=== PATIENT | female | born 1995 | race Caucasian/White ===

== ENCOUNTER 2017-04-30 16:31 | Observation (INO) | payer OTHER ==
[2017-04-30] MEDS ORDERED: Ketorolac INJ* 30 MG/ML 1 ML VIAL IV PUSH ONE (17:59)
[2017-04-30] MEDS ORDERED: Ondansetron INJ* 2 MG/ML VIAL IV ONE (17:59)
--- NOTE | 2017-04-30 18:05 | ED ---
Abdominal Pain/Female - HPI Summary HPI Summary: 21F presents with abdominal pain since this morning. It started in her lower abdomen and now radiates across her entire abdomen. She admits to nausea but denies any vomiting. She denies any diarrhea, constipation, dysuria, hematuria , flank pain, urgency, or frequency. She states initially the pain felt like period cramps but she is not due for her period. She denies any abnormal vaginal discharge. She has never had this pain before. She states her appetite has been normal. She denies any previous abdominal surgeries. She tried some aleve without relief. The pain has been getting worst throughout the day. She denies any one else being sick or eating anything different. She had a low grade fever today. - History of Current Complaint Chief Complaint: EDScotin Stated Complaint: ABD PAIN Time Seen by Provider: 04/30/17 17:48 Pain Intensity: 4 Allergies/Adverse Reactions: Allergies Allergy/AdvReac Type Severity Reaction Status Date / Time Penicillins [PCN] Allergy Swelling Verified 04/30/17 18:03 Of Face,Lips,& Throat PMH/Surg Hx/FS Hx/Imm Hx Endocrine/Hematology History: Denies: Hx Anticoagulant Therapy Cardiovascular History: Denies: Hx Hypertension Infectious Disease History: Denies: Traveled Outside the [place] in Last 30 Days - Family History Known Family History: Negative: Cardiac Disease Review of Systems Negative: Fever Negative: Chest Pain Negative: Shortness Of Breath Positive: Abdominal Pain, Nausea. Negative: Vomiting, Diarrhea All Other Systems Reviewed And Are Negative: Yes Physical Exam Triage Information Reviewed: Yes Vital Signs On Initial Exam: Initial Vitals Temp Pulse Resp BP Pulse Ox 100.2 F 111 18 120/73 100 04/30/17 16:40 04/30/17 16:40 04/30/17 16:40 04/30/17 16:40 04/30/17 16:40 Vital Signs Reviewed: Yes Appearance: Positive: Well-Appearing Skin: Positive: Warm, Dry Head/Face: Positive: Normal Head/Face Inspection Eyes: Positive: Normal, EOMI, ZACH, Conjunctiva Clear ENT: Positive: Normal ENT inspection, Pharynx normal, TMs normal Respiratory/Lung Sounds: Positive: Clear to Auscultation, Breath Sounds Present Cardiovascular: Positive: Normal, RRR Abdomen Description: Positive: Soft, Other: - tendnerness in RLQ, pos rovsings Bowel Sounds: Positive: Present Pelvic Exam: Positive: external exam normal, speculum exam normal, bimanual exam normal, no cerv. motion tender Diagnostics - Vital Signs Vital Signs Temp Pulse Resp BP Pulse Ox 04/30/17 16:40 100.2 F 111 18 120/73 100 - Laboratory Result Diagrams: 04/30/17 18:12 04/30/17 18:12 Lab Statement: Any lab studies that have been ordered have been reviewed, and results considered in the medical decision making process. - CT abd CT Interpretation: Positive (See Comments) - IMPRESSION: THE CT FINDINGS MAY BE COMPATIBLE WITH EARLY ACUTE APPENDICITIS GIVEN THE APPROPRIATE CLINICAL PRESENTATION. SUGGEST SURGICAL REFERRAL INDICATED. CT Interpretation Completed By: Radiologist - Ultrasound No standard instances Ultrasound Interpretation: No Acute Changes - IMPRESSION: TRACE FREE FLUID LIKELY REPRESENTING PHYSIOLOGIC FREE FLUID Ultrasound Interpretation Completed By: Radiologist Re-Evaluation - Re-Evaluation First Eval Re-Evaluation Time: 20:40 Change: Improved Comment: felling better. pain only on palpation of RLQ Abdominal Pain Fem Course/Dx - Course Course Of Treatment: 21F presents with abdominal pain today. It started in her lower abdomen and now radiates across her entire abdomen. She admits to nausea but denies any vomiting. She denies any diarrhea, constipation, dysuria, hematuria, flank pain, urgency, or frequency. She states initially the pain felt like period cramps but she is not due for her period. She denies any abnormal vaginal discharge. She has never had this pain before. She states her appetite has been normal. She denies any previous abdominal surgeries. She tried some aleve without relief. The pain has been getting worst throughout the day. on exam tender in RLQ without rebound. pos rovsings. wbc of 18.4 and crp of 28. temp of 101. CT shows possible early appendicitis. spoke with dr torres recommended pelvic exam. pelvic exam normal. dr torres will see in ED - Diagnoses Differential Diagnosis: Positive: Appendicitis, Ovarian Cyst, Urinary Tract Infection Provider Diagnoses: Appendicitis - Provider Notifications Discussed Care Of Patient With: dr torres Time Discussed With Above Provider: 20:45 - perform pelvic exam Discharge - Discharge Plan Condition: Stable Disposition: ADMITTED TO [facility]
[2017-04-30 18:25] LABS: Hematocrit 39 % (35-47); Hemoglobin 13.3 g/dl (12.0-16.0); Mean Corpuscular HGB Conc 34 g/dl (31-36); Mean Corpuscular Hemoglobin 29 pg (27-31); Mean Corpuscular Volume 86 fL (80-97); Mean Platelet Volume 9 um3 (7.4-10.4); Red Blood Count 4.51 10^6/ul (4.0-5.4); Red Cell Distribution Width 12 % (10.5-15); White Blood Count 18.4 10^3/ul (3.5-10.8)
[2017-04-30] MEDS: NS 0.9% 1000 ML* 2,000 ML IV ONE (18:29)
[2017-04-30 18:35] LABS: ALT 19 U/L (7-52); AST 18 U/L (13-39); Albumin 4.3 g/dL (3.2-5.2); Alkaline Phosphatase 42 U/L (34-104); Anion Gap 7 mmol/L (2-11); BUN/Creatinine Ratio 15.3 (8-20); Blood Urea Nitrogen 11 mg/dL (6-24); CO2 Carbon Dioxide 24 mmol/L (22-32); Calcium 9.5 mg/dL (8.6-10.3); Chloride 105 mmol/L (101-111); EGFR African American 132.8 (>60); EGFR Non-African American 103.3 (>60); Glucose 93 mg/dL (70-100); Lipase 15 U/L (11.0-82.0); Potassium 3.6 mmol/L (3.5-5.0); Sodium 136 mmol/L (133-145); Total Protein 7.3 g/dL (6.4-8.9)
[2017-04-30] MEDS ORDERED: Iohexol 300* (CONTRAST) 10 ML SDV IV ONE (19:19)
--- NOTE | 2017-04-30 19:28 | RAD ---
INDICATION: Pelvic pain COMPARISON: None TECHNIQUE: Longitudinal and transverse transvaginal scans of the pelvis were obtained. FINDINGS: Uterus: The uterus is normal in size. There are no focal masses. The uterus measures 8.5 x 3.7 x 4.6 cm. Endometrial thickness: The endometrial thickness is measured at 0.4 cm. . Free fluid: There is trace free fluid . Ovaries: The ovaries are normal in size. The right ovary measures 3.4 x 2.7 x 3.5 cm. The left ovary measures 2.7 x 1.7 x 2.4 cm. . Doppler interrogation demonstrates flow to each ovary. Other: None IMPRESSION: TRACE FREE FLUID LIKELY REPRESENTING PHYSIOLOGIC FREE FLUID
--- NOTE | 2017-04-30 20:28 | RAD ---
INDICATION: Right lower quadrant pain COMPARISON: Pelvic sonogram same date TECHNIQUE: Axial source images were obtained from the hemidiaphragms to the symphysis pubis following administration of oral and intravenous contrast. 85 mL Omnipaque 300 was utilized. Coronal and sagittal reconstructed images were acquired. Lung bases: The lung bases are clear. Liver: The liver is normal in size. There are no masses. There is no ductal dilatation. Gallbladder: There are no calcified gallstones. There is no evidence of wall thickening or pericholecystic fluid. Spleen: The spleen is normal in size. There are no masses. Pancreas: There is no focal pancreatic mass or ductal dilatation. Adrenal glands: There is no evidence of adrenal mass. Kidneys: The kidneys are normal in size and position. There are prompt nephrograms and there is prompt excretion bilaterally. There are no renal parenchymal masses. There is no evidence of nephrolithiasis. Adenopathy: There is no evidence of adenopathy by size criteria. Fluid collections: Small amount of free fluid in the cul-de-sac. Small follicles bilaterally. Vessels:There are no significant atherosclerotic changes involving the aorta. There is no focal aneurysm. The iliac vessels are normal in caliber. The IVC appears normal. GI tract: The upper GI tract is unremarkable. There is minor thickening of the cecal tip. There is minimal periappendiceal stranding. The appendix is fluid-filled but not dilated. The findings may be secondary to an early acute appendicitis but must be correlated with the clinical presentation. Pelvic organs: The uterus and adnexa appear normal Bladder: There are no bladder masses. Abdominal and pelvic soft tissues: The extraperitoneal abdominal and pelvic soft tissues appear normal.. Osseous structures: There are no acute osseous findings. Other: None IMPRESSION: THE CT FINDINGS MAY BE COMPATIBLE WITH EARLY ACUTE APPENDICITIS GIVEN THE APPROPRIATE CLINICAL PRESENTATION. SUGGEST SURGICAL REFERRAL INDICATED.
[2017-04-30 20:52] LABS: Urine Bilirubin Negative (Negative); Urine Glucose Negative (Negative); Urine Nitrite Negative (Negative)
[2017-04-30] MEDS ORDERED: Sodium Citrate/Citric Acid* 15 ML UDC ONE (21:58)
[2017-04-30] MEDS ORDERED: Clindamycin 900 MG IVPREMIX(* 900 MG/50 ML SDV IV ONE ×2 (22:00→22:17)
[2017-04-30] MEDS ORDERED: Gentamicin ADULT (*) 300 MG in NS 0.9% 250 ML* 250 ML IVPB ONE (22:00)
[2017-04-30] MEDS ORDERED: Bupivacaine 0.5% W/EPI SDV* 30 ML VIAL ONE (22:15)
[2017-04-30] MEDS ORDERED: fentaNYL* 50 MCG/ML 2 ML VIAL (100 MCG VIAL) ONE (22:19)
[2017-04-30] MEDS ORDERED: Propofol* 10 MG/ML 20 ML BTL IV PUSH ONE (22:37)
[2017-04-30] MEDS ORDERED: Dexamethasone IV* 4 MG/ML 1 ML (4 MG) ONE (22:37)
[2017-04-30] MEDS ORDERED: Lidocaine 2% PF * 5 ML VIAL ONE (22:37)
[2017-04-30] MEDS ORDERED: Scopolamine 1.5 mg* PATCH ONE (22:37)
[2017-04-30] MEDS ORDERED: Succinylcholine* 20 MG/ML 10 ML VIAL ONE (22:37)
[2017-04-30] MEDS ORDERED: fentaNYL* 50 MCG/ML 2 ML VIAL (100 MCG VIAL) IV PRN (22:47)
[2017-04-30] MEDS ORDERED: diPHENhydraMINE IV* 50 MG/ML 1 ml VIAL (BENADRYL) IV PRN (22:47)
[2017-04-30] MEDS ORDERED: oxyCODONE/Acetamin 5/325 MG* TAB PO PRN ×2 (22:47→23:15)
[2017-04-30] MEDS ORDERED: Ondansetron INJ* 2 MG/ML VIAL ONE (22:55)
[2017-04-30] MEDS ORDERED: HYDROmorphone* 1 MG/ML 1 ML SYR IV PRN (23:15)
[2017-04-30] MEDS ORDERED: Ondansetron INJ* 2 MG/ML VIAL IV PRN (23:15)
[2017-04-30] MEDS ORDERED: Ibuprofen TAB* 600 MG PO PRN (23:15)
[2017-04-30] MEDS ORDERED: DiMENhydriNATE IV* 50 MG/ML VIAL IV PUSH PRN (23:17)
--- NOTE | 2017-04-30 23:21 | SURGPN ---
Brief Operative Note - Surgery Procedures: PRE/POSTOP DX: ACUTE APPENDICITIS PROC: LAP APPENDECTOMY SURG: MECENAS ASSIST: NONE ANES: GET/BYLEBYL EBL: <50ML IVF: 450 ML CRYST SPEC: APPENDIX DRAIN/COMPL: NONE COND: STABLE, EXTUBATED TO RR.
[2017-04-30] MEDS ORDERED: oxyCODONE/Acetamin 5/325 MG* TAB ONE (23:34)
--- NOTE | 2017-05-01 00:57 | HP ---
CC: [facility] * HISTORY AND PHYSICAL: DATE OF ADMISSION: 04/30/17 CHIEF COMPLAINT: Right lower quadrant abdominal pain and nausea. HISTORY OF PRESENT ILLNESS: This is a 21-year-old female with no significant past medical history, who presented to [facility] Emergency Room from [facility] with a history of right lower quadrant abdominal pain, awakening her at approximately 7 a.m. She was able to return to sleep; however, subsequently she awoke at noon. She still had pain, it seemed to be more diffuse at that point. She did eat lunch consisting of a bagel, eggs and cruz. She states that she did have some nausea, subsequently did not vomit. She denies diarrhea or constipation. She denies dysuria or hematuria. She had felt feverish and as the pain was persisting, she presented to the urgent care center and from there was sent to [facility] Emergency Department. In the emergency department, the patient was evaluated and underwent a transvaginal ultrasound and CT scan of abdomen and pelvis as well as laboratory work. She was noted to have leukocytosis and also noted to have temperature of 101.1. Her ultrasound revealed trace free fluid with normal appearing right and left ovary and the CT scan showed findings of minor thickening of the cecal tip with periappendiceal fat stranding and fluid filled appendix consistent with early acute appendicitis. Based on these findings, a surgical evaluation was requested. At present, the patient reports minimal pain; however, she did receive pain medication recently. She denies any nausea at this time. She has not had similar pain in the past. She has no sick contacts. PAST MEDICAL HISTORY: Unremarkable. PAST SURGICAL HISTORY: None. MEDICATIONS: Oral contraceptive. ALLERGIES: PENICILLIN causes swelling of the face, lips, and throat. FAMILY HISTORY: Mother has rheumatoid arthritis. Father has had back problems and surgery for that. Her grandmother had pulmonary embolism related to an abdominal surgery. 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 She is single. She does not smoke. She does drink alcohol but less than 1 beverage a week. She denies drug use. REVIEW OF SYSTEMS: A 14-point review of systems was completed and significant for the above-mentioned positives and negatives, otherwise negative. PHYSICAL EXAMINATION GENERAL: She is a well-developed, well-nourished, 21-year-old female, in no acute distress. VITAL SIGNS: Her height is 5 feet 7 inches, stated weight of 140 pounds. Her temperature is 99.4, pulse 93, respirations 17, O2 99%, and blood pressure 109/ 80. HEENT: Her head is normocephalic and atraumatic. Her sclerae are anicteric and mucous membranes are moist. There is no otorrhea or rhinorrhea. NECK: Symmetrical and trachea is midline. There is no palpable lymphadenopathy or masses. LUNGS: Clear to auscultation bilaterally. She uses no accessory muscle for respiration. HEART: Regular, S1 and S2. No murmurs, rubs, or gallops appreciated. ABDOMEN: Noted to have a piercing of the umbilical site. There are no scars. Bowel sounds are diminished. It is soft and nondistended. There is tenderness in the right lower quadrant with a positive Rovsing sign. EXTREMITIES: Warm without cyanosis, clubbing, or edema. PELVIC: As per the emergency room staff was negative. DIAGNOSTIC STUDIES/LAB DATA: WBC is 18.4, hemoglobin 13.3, platelet 187,000. Chemistries: Sodium 136, potassium 3.6, chloride 105, bicarb 24, BUN is 11, creatinine 0.7, and glucose is 93. Transaminases are normal. Total bilirubin 1.1. Lipase normal. Beta-HCG is less than 0.6. CRP is 28. Urine was notable for trace ketones, otherwise normal. Images were reviewed. Findings as reported above. IMPRESSION: A 21-year-old female with early, acute appendicitis. PLAN/RECOMMENDATIONS: I discussed the findings with the patient. I recommended laparoscopic appendectomy. I reviewed the nature of the procedure, the indications, risks, benefits and alternatives and the options of the treatment. The risks were explained including not limited to bleeding, infection, pain, scarring, blood clots, pneumonia, nausea, vomiting, reactions to medications, and the risks of general anesthesia. The patient had an opportunity to ask questions. All her questions were answered. She states her understanding, she agrees to proceed. She will be kept n.p.o. and administered IV antibiotics of clindamycin, gentamicin preoperatively. SCDs for DVT prophylaxis as well as early ambulation. [id number]/[facility] #: [id number] MTDD
[2017-05-01] MEDS: Acetaminophen TAB* 325 MG PO PRN ×2 (03:58→09:23)
--- NOTE | 2017-05-01 08:19 | DCNOTE ---
S:Minimal pain. Taking Tylenol only. No N/V. Hungry. Ready to go home. Vital Signs O: Temp 98.1 F 05/01/17 03:49 Pulse 70 05/01/17 03:49 Resp 16 05/01/17 03:49 BP 96/47 05/01/17 03:49 Pulse Ox 98 05/01/17 03:49 Intake & Output 04/30/17 05/01/17 05/01/17 18:59 06:59 18:59 Intake Total 1999 1350 Output Total 0 Balance 1999 1350 Weight 140 lb 140 lb Intake: IV Fluids 1999 850 300MG GENTAMYCIN 250 900 CLINDAMYCIN 50 LR 550 Oral 500 Output: Urine 0 Other: Estimated Void Medium # Voids 1 NAD Abd: incis c/d/i no erythema; soft; ND; minimally tender. A: S/p lap appy. Doing well and able to be d/c'd home today. P: Diet and activity instructions reviewed. Wound care discussed. Need for f/ u discussed. Will send Rx to [place], if possible, for Percocet in case she needs it.
[2017-05-01 08:41] VITALS: BP 99/44
--- NOTE | 2017-05-01 13:08 | OP ---
CC: [facility] * DATE OF OPERATION: 04/30/17 - ROOM #340 DATE OF : 89 SURGEON: Berto Watt MD. CAD DESIGN ENGINEER: None. ANESTHESIOLOGIST: Dr. Beltre. ANESTHESIA: General endotracheal. PRE-OP DIAGNOSIS: Acute appendicitis. POST-OP DIAGNOSIS: Acute appendicitis. OPERATIVE PROCEDURE: Laparoscopic appendectomy. ESTIMATED BLOOD LOSS: Less than 50 mL. IV FLUIDS: 450 mL crystalloid. SPECIMEN: Appendix. DRAINS: None. COMPLICATIONS: None. COUNTS: Instrument, needle, and sponge counts correct. DESCRIPTION OF PROCEDURE: The patient was brought to the operating room and placed on the table supine. Sequential compression devices were placed on both lower extremities. General anesthesia was administered. The abdomen was prepped and draped in the usual sterile fashion. Time-out was performed. Local anesthetic was infiltrated in the skin and soft tissue prior to making each incision. A transumbilical vertical incision was created using an open technique. The peritoneal cavity was accessing and a 12-mm trocar was placed. Carbon dioxide was insufflated to a pressure of 15 mmHg. Under direct visualization, a 5 mm trocars are placed in the suprapubic midline and in the left lower quadrant. Inspection revealed an inflamed appendix base in the right lower quadrant. The appendix seemed to course posterior to the cecum. The appendix base was elevated and adhesions to the lateral side wall were divided sharply. The appendix was clearly retrocecal coursing further cephalad and the dissection proceeded using a combination of sharp and blunt dissection to dissect out the appendix, which was quite long and thin on the distal one-half. The appendix was divided from the cecum at the base using an Endo RACHEL stapler with ko cartridge. The mesentery of the appendix was divided with two firings of the Endo RACHEL stapler with the ma cartridge. The appendix was placed into an endoscopic retrieval bag and retrieved from the abdomen. The area of dissection was inspected and noted to be intact and hemostatic. Ports were then removed under direct visualization and carbon dioxide was released. Umbilicals were closed with 0 Polysorb in [id number] fashion to approximate the fascia. Skin incisions were closed using 4-0 Monocryl in subcuticular fashion. DermaFlex was used for the umbilical wound and Steri- Strips for the 5-mm port site. The patient was extubated uneventfully and transferred to Recovery in stable condition. [id number]/[facility] #: [id number] MTDAmna
[2017-05-03] MEDS ORDERED: Scopolomine PATCH Remove* 1 NOTE MISC PATCH OFF ONE (22:48)
--- NOTE | 2017-05-06 04:54 | DS ---
CC: [facility]* DISCHARGE SUMMARY: DATE OF ADMISSION: 04/30/17 DATE OF DISCHARGE: 05/01/17 DISCHARGE DIAGNOSIS: Acute appendicitis. PROCEDURES: Laparoscopic appendectomy, date of surgery was 04/30/17. HOSPITAL COURSE: This is a 21-year-old female, who was seen in [facility] Emergency Room with abdominal pain and she was evaluated by emergency room providers with abdominal CT scan, which revealed findings consistent with early acute appendicitis. Surgical evaluation was requested and she was found to have acute appendicitis and taken to the operating room for laparoscopic appendectomy. Surgery was performed by Dr. Watt on 04/30/17. Please refer to the operative report for full details. Postoperatively, the patient did well. She was transferred from the recovery room to the surgical floor for monitoring overnight. The next day her diet was progressed. Her medications were transitioned to oral medications only. She was felt stable for discharge. The patient was discharged with instructions from [facility] office that included diet, activity, and wound care instructions as well as instructions to present to the office for followup in 7 to 10 days. The patient 's pathology was consistent with acute appendicitis with periappendicitis. [id number]/[facility] #: [id number] MTDD
== END 2017-05-01 10:05 | disposition home or self-care (01) ==
LOC: ED 16:31 → OR 21:18 → SSU 23:46
PROVIDERS: ADMIT Surgery; ATTEND Surgery
DX: K35.80 Unspecified acute appendicitis (principal); R10.31 Right lower quadrant pain; R11.0 Nausea; R50.9 Fever, unspecified; D72.829 Elevated white blood cell count, unspecified; R10.2 Pelvic and perineal pain; N94.9 Unspecified condition associated with female genital organs and menstrual cycle
CPT/HCPCS: 36415; 74177; 76830; 80053; 81003; 83690; 84702; 85025; 86141; 86703; 87480; 87491; 87510; 87591; 87661; 88304; 96374; 96375; 99283; A9270-GY; C1776; G0378; J0330; J1100; J1240; J1580; J1885; J2405; J2704; J3010; Q9967